=== PATIENT | female | born 1980 | race African-American/Black ===

== ENCOUNTER 2021-11-19 17:46 | Emergency (ER) | payer MEDICAID ==
[~2021-11-19] VITALS: Ht 165.1 cm; Wt 101.0 kg
[2021-11-19] MEDS ORDERED: IBUP-2028 MT (18:38)
[2021-11-19] MEDS ORDERED: IBUPROFEN 400MG TABLET PO ONE (18:45)
[2021-11-19 22:59] VITALS: BP 128/83
== END 2021-11-19 23:00 | disposition home or self-care (01) ==
LOC: ER 17:46
DX: H92.01 Otalgia, right ear (principal); E11.9 Type 2 diabetes mellitus without complications; I11.9 Hypertensive heart disease without heart failure; F20.9 Schizophrenia, unspecified
CPT/HCPCS: 99283